=== PATIENT | female | born 1970 | race Caucasian/White ===

== ENCOUNTER → 2016-04-18 | Outpatient (REF) | payer OTHER ==
[2016-04-18 11:49] LABS: MEAN CORPUSCULAR HEMOGLOBIN 25.7 pg (27.0-33.0); MEAN CORPUSCULAR HGB CONC 31.9 g/dl (32.0-36.5); MEAN CORPUSCULAR VOLUME 80.4 fl (80.0-96.0); RED CELL DISTRIBUTION WIDTH 15.2 % (11.5-14.5); WHITE BLOOD COUNT 7.7 K/mm3 (4.0-10.0)
[2016-04-18 12:11] LABS: PERCENT SATURATION 10.5 % (13.2-37.4)
== END ==
LOC: M SFHCCLAY 09:19
PROVIDERS: ATTEND Nurse Practitioner Family
DX: D64.9 Anemia, unspecified (principal); E78.4 Other hyperlipidemia; K21.9 Gastro-esophageal reflux disease without esophagitis; E55.9 Vitamin D deficiency, unspecified

== ENCOUNTER → 2016-07-26 | Outpatient (CLI) | payer OTHER ==
--- NOTE | 2016-07-26 14:55 | REPMRS ---
Patient History The patient states she had a clinical breast exam in 07/2016. Family history of ovarian cancer in mother at age 67 and breast cancer in maternal grandmother under age 50. Digital Woman Screen Mammo: July 26, 2016 - Exam #: [id number] Bilateral CC and MLO view(s) were taken. Technologist: Ania Honeycutt, Technologist Prior study comparison: July 16, 2015, digital woman screen mammo performed at [facility] [place]. April 24, 2014, digital woman screen mammo performed at [facility] to [place]. FINDINGS: There are scattered fibroglandular densities. There has been no change in the appearance of the mammogram from the prior studies. There is a mild amount of residual fibroglandular tissue which is fairly symmetric. There is no interval development of dominant mass, architectural distortion, or clustered microcalcification suggestive of malignancy. ASSESSMENT: BI-RADS/ACR category 1 mammogram. Negative. Recommendation Routine screening mammogram in 1 year (for women over age 40). This mammogram was interpreted with the aid of an FDA-approved computer-aided dectection system. Electronically Signed By: Grant Bueno MD 07/26/16 [id number]
== END ==
LOC: M WHC 13:08
PROVIDERS: ATTEND Nurse Practitioner Family
DX: Z12.31 Encounter for screening mammogram for malignant neoplasm of breast (principal); Z80.3 Family history of malignant neoplasm of breast

== ENCOUNTER → 2016-10-31 | Outpatient (REF) | payer OTHER ==
[2016-10-31 12:44] LABS: MEAN CORPUSCULAR HEMOGLOBIN 26.4 pg (27.0-33.0); MEAN CORPUSCULAR HGB CONC 32.1 g/dl (32.0-36.5); MEAN CORPUSCULAR VOLUME 82.3 fl (80.0-96.0); RED CELL DISTRIBUTION WIDTH 14.8 % (11.5-14.5); WHITE BLOOD COUNT 7.8 K/mm3 (4.0-10.0)
[2016-10-31 13:16] LABS: ALBUMIN 3.6 GM/DL (3.2-5.2); ALBUMIN/GLOBULIN RATIO 0.97 (1.00-1.93); ALKALINE PHOSPHATASE 94 U/L (45-117); ALT/SGPT 19 U/L (12-78); ANION GAP 8 MEQ/L (8-16); AST/SGOT 13 U/L (15-37); BILIRUBIN,TOTAL 0.4 MG/DL (0.2-1.0); BLOOD UREA NITROGEN 16 MG/DL (7-18); CALCIUM LEVEL 8.8 MG/DL (8.5-10.1); CARBON DIOXIDE LEVEL 27 MEQ/L (21-32); CHLORIDE LEVEL 107 MEQ/L (98-107); CHOLESTEROL LEVEL 230 MG/DL (<200); CREATININE FOR GFR 0.61 MG/DL (0.55-1.02); GLOMERULAR FILTRATION RATE > 60.0 (>58); GLUCOSE, FASTING 96 MG/DL (70-105); PERCENT SATURATION 16.5 % (13.2-37.4); POTASSIUM SERUM 4.2 MEQ/L (3.5-5.1); SODIUM LEVEL 142 MEQ/L (136-145); TOTAL IRON BINDING CAPACITY 334 UG/DL (250-450); TOTAL PROTEIN 7.3 GM/DL (6.4-8.2); TRIGLYCERIDES LEVEL 195 MG/DL (<150)
== END ==
LOC: M SFHCCLAY 08:49
PROVIDERS: ATTEND Nurse Practitioner Family
DX: D64.9 Anemia, unspecified (principal); E78.4 Other hyperlipidemia; E55.9 Vitamin D deficiency, unspecified

== ENCOUNTER → 2017-07-24 | Outpatient (REF) | payer OTHER ==
[2017-07-24 11:30] LABS: HEMATOCRIT 33.6 % (36.0-47.0); HEMOGLOBIN 10.4 g/dl (12.0-15.5); MEAN CORPUSCULAR HEMOGLOBIN 24.9 pg (27.0-33.0); MEAN CORPUSCULAR VOLUME 80.4 fl (80.0-96.0); PLATELET COUNT, AUTOMATED 371 10^3/uL (150-450); RED BLOOD COUNT 4.18 10^6/uL (4.00-5.40); RED CELL DISTRIBUTION WIDTH 14.8 % (11.5-14.5); WHITE BLOOD COUNT 7.8 10^3/uL (4.0-10.0)
[2017-07-24 12:03] LABS: ALBUMIN 3.6 GM/DL (3.2-5.2); ALBUMIN/GLOBULIN RATIO 0.95 (1.00-1.93); ALKALINE PHOSPHATASE 126 U/L (45-117); ALT/SGPT 20 U/L (12-78); AST/SGOT 15 U/L (7-37); BILIRUBIN,DIRECT < 0.1 MG/DL (0.0-0.2); BILIRUBIN,TOTAL 0.3 MG/DL (0.2-1.0); CHOLESTEROL LEVEL 165 MG/DL (<200); CHOLESTEROL RISK RATIO 4.024 (<5); HDL CHOLESTEROL 41 MG/DL (>40); LDL CHOLESTEROL 97.2 MG/DL (<100); NON-HDL-C 124 MG/DL; TOTAL PROTEIN 7.4 GM/DL (6.4-8.2); TRIGLYCERIDES LEVEL 134 MG/DL (<150)
== END ==
LOC: M SFHCCLAY 09:11
DX: D64.9 Anemia, unspecified (principal); E78.4 Other hyperlipidemia
CPT/HCPCS: 80076

== ENCOUNTER → 2018-01-15 | Outpatient (CLI) | payer OTHER | LOC: M WHC 11:31 | DX: Z80.41 Family history of malignant neoplasm of ovary (principal); Z01.411 Encounter for gynecological examination (general) (routine) with abnormal findings (principal) | CPT/HCPCS: 76830 ==

== ENCOUNTER → 2018-04-06 | Outpatient (CLI) | payer OTHER ==
--- NOTE | 2018-04-06 18:16 | REP ---
Pelvic sonography: History: Endometrial polyp. Comparison pelvic sonography January 15, 2018 showed a possible endometrial polyp. Findings: Uterine dimensions are somewhat enlarged at 11.6 x 5.5 x 7.2 cm. Endometrial echo is 0.8 cm thick. Uterus is anteverted. Nabothian cysts are seen in the cervix. A 1.2 x 0.7 x 0.6 cm hypoechoic area seen on transvaginal imaging anterior to the endometrium suggesting a submucosal fibroid. No endometrial polyp is visible today. The right ovary could not be seen. No right adnexal mass or cyst is seen. No free fluid is noted. The left ovary measures 3.9 x 2.3 x 3.2 cm. It contains a 2.8 x 1.4 x 1.8 cm follicle cyst. Impression: Uterine enlargement. Probable 1.2 cm submucosal fibroid at the fundus. No definite endometrial polyp seen today.
== END ==
LOC: M WHC 11:01
PROVIDERS: ATTEND Nurse Practitioner Family
DX: D25.9 Leiomyoma of uterus, unspecified (principal); N84.0 Polyp of corpus uteri

== ENCOUNTER → 2019-01-14 | Outpatient (CLI) | payer OTHER ==
--- NOTE | 2019-01-15 08:31 | REPMRS ---
Patient History The patient states she had a clinical breast exam in 01/2019. Family history of ovarian cancer at age 67 in mother, breast cancer at age 50 or over in paternal aunt. No Hormone Replacement Therapy Digital Woman Screen Mammo: January 14, 2019 - Exam #: [id number] Bilateral CC and MLO view(s) were taken. Technologist: Ania Honeycutt, Technologist Prior study comparison: December 01, 2017, bilateral digital woman screen mammo performed at [facility]. July 26, 2016, digital woman screen mammo performed at [facility]. July 16, 2015, digital woman screen mammo performed at [facility]. FINDINGS: The breast tissue is almost entirely fat. There has been no change in the appearance of the mammogram from the prior studies. There is no interval development of dominant mass, architectural distortion, or grouped microcalcification typical of malignancy. 3-D tomosynthesis shows no additional findings. Assessment: BI-RADS/ACR category 1 mammogram. Negative Mammogram. Recommendation Routine screening mammogram of both breasts in 1 year (for women over age 40). This patient's Lifetime Breast Cancer RIsk is estimated at 18.3 %. This mammogram was interpreted with the aid of an FDA-approved computer-aided dectection system. Electronically Signed By: Glenn Breen MD 01/15/19 0855
== END ==
LOC: M WHC 13:02
PROVIDERS: ATTEND Nurse Practitioner Family
DX: Z12.31 Encounter for screening mammogram for malignant neoplasm of breast (principal); Z80.41 Family history of malignant neoplasm of ovary

== ENCOUNTER → 2019-09-24 | Outpatient (REF) | payer OTHER ==
[2019-09-24 12:21] LABS: HEMATOCRIT 30.1 % (36.0-47.0); HEMOGLOBIN 8.6 g/dl (12.0-15.5); MEAN CORPUSCULAR HEMOGLOBIN 22.2 pg (27.0-33.0); MEAN CORPUSCULAR HGB CONC 28.6 g/dl (32.0-36.5); MEAN CORPUSCULAR VOLUME 77.6 fl (80.0-96.0); PLATELET COUNT, AUTOMATED 355 10^3/uL (150-450); RED BLOOD COUNT 3.88 10^6/uL (4.00-5.40); WHITE BLOOD COUNT 8.8 10^3/uL (4.0-10.0)
[2019-09-24 12:45] LABS: ALBUMIN 3.3 GM/DL (3.2-5.2); ALT/SGPT 26 U/L (12-78); BILIRUBIN,TOTAL 0.5 MG/DL (0.2-1.0); BLOOD UREA NITROGEN 14 MG/DL (7-18); CALCIUM LEVEL 8.8 MG/DL (8.5-10.1); CARBON DIOXIDE LEVEL 27 MEQ/L (21-32); CHLORIDE LEVEL 106 MEQ/L (98-107); CHOLESTEROL LEVEL 180 MG/DL (<200); CHOLESTEROL RISK RATIO 4.285 (<5); CREATININE FOR GFR 0.61 MG/DL (0.55-1.30); GLOMERULAR FILTRATION RATE > 60.0 (>58); GLUCOSE, FASTING 123 MG/DL (70-100); HDL CHOLESTEROL 42 MG/DL (>40); LDL CHOLESTEROL 104 MG/DL (<100); NON-HDL-C 138 MG/DL; SODIUM LEVEL 139 MEQ/L (136-145); TOTAL PROTEIN 6.9 GM/DL (6.4-8.2); TRIGLYCERIDES LEVEL 172 MG/DL (<150)
== END ==
LOC: M SFHCCLAY 08:46
PROVIDERS: ATTEND Nurse Practitioner Family
DX: K21.9 Gastro-esophageal reflux disease without esophagitis (principal); E78.5 Hyperlipidemia, unspecified; E55.9 Vitamin D deficiency, unspecified

== ENCOUNTER → 2019-10-07 | Outpatient (CLI) | payer OTHER | LOC: M RAD 12:11 | PROVIDERS: ATTEND Nurse Practitioner Family | DX: Z91.89 Other specified personal risk factors, not elsewhere classified (principal) ==

== ENCOUNTER → 2019-11-12 | Outpatient (REF) | payer OTHER ==
[~2019-11-12] MED LIST: ATOR40TA75 PO; LISI10TA4 PO; MAGN64TASA PO; MEDR10TA PO; METF500T13 PO; MULTCAP PO; OMEP40CA97 PO; OXYC1TAB23 PO; SERT25TA21 PO; VITA50005 PO
[2019-12-16 10:39] LABS: HEMATOCRIT 30.6 % (36.0-47.0); HEMOGLOBIN 8.6 g/dl (12.0-15.5); MEAN CORPUSCULAR HEMOGLOBIN 21.1 pg (27.0-33.0); MEAN CORPUSCULAR HGB CONC 28.1 g/dl (32.0-36.5); PLATELET COUNT, AUTOMATED 435 10^3/uL (150-450); RED BLOOD COUNT 4.08 10^6/uL (4.00-5.40); WHITE BLOOD COUNT 10.6 10^3/uL (4.0-10.0)
[2019-12-29 07:18] LABS: ALBUMIN 3.6 GM/DL (3.2-5.2); ALT/SGPT 22 U/L (12-78); BILIRUBIN,TOTAL 0.4 MG/DL (0.2-1.0); BLOOD UREA NITROGEN 12 MG/DL (7-18); CARBON DIOXIDE LEVEL 24 MEQ/L (21-32); CHLORIDE LEVEL 109 MEQ/L (98-107); CREATININE FOR GFR 0.74 MG/DL (0.55-1.30); GLOMERULAR FILTRATION RATE > 60.0 (>58); GLUCOSE, FASTING 202 MG/DL (70-100); POTASSIUM SERUM 3.8 MEQ/L (3.5-5.1); SODIUM LEVEL 141 MEQ/L (136-145); TOTAL PROTEIN 7.3 GM/DL (6.4-8.2)
== END ==
LOC: M SFHCCLAY 12:26
PROVIDERS: ATTEND Family Medicine
DX: E78.00 Pure hypercholesterolemia, unspecified (principal); N93.9 Abnormal uterine and vaginal bleeding, unspecified

== ENCOUNTER → 2019-11-22 | Outpatient (CLI) | payer OTHER | LOC: M LABSMTC 11:11 | PROVIDERS: ATTEND Anesthesiology | DX: Z01.812 Encounter for preprocedural laboratory examination (principal); Z11.59 Encounter for screening for other viral diseases ==

== ENCOUNTER 2019-11-27 07:09 | Day surgery (SDC) | payer OTHER ==
[~2019-11-27] VITALS: Ht 167.6 cm; Wt 146.9 kg
[2019-11-27] VITALS (8 sets, daily range): BP systolic 128–159; BP diastolic 60–87
[~2019-11-27 07:09] MED LIST changes: -LISI10TA4 PO; -METF500T13 PO; -OXYC1TAB23 PO
[2019-11-27] MEDS ORDERED: BUPIVACAINE HCL 0.25% 30ML VIAL As Ordered ONE (08:03)
[2019-11-27] MEDS ORDERED: ceFAZolin SOD 2 GM in IV 1 EA IV ONE (08:15)
[2019-11-27] MEDS ORDERED: ceFAZolin SOD 1 GM in D5W MINI-BAG PLUS 50 ML IV ONE (08:15)
[2019-11-27] MEDS ORDERED: BUPIVACAINE HCL 0.25% 10ML VIAL As Ordered ONE (08:29)
[2019-11-27] MEDS ORDERED: LR 1,000 ML IV ONE (08:30)
[2019-11-27 08:33] LABS: WHITE BLOOD COUNT 14.3 10^3/uL (4.0-10.0)
[2019-11-27 08:34] LABS: HEMATOCRIT 30.2 % (36.0-47.0); HEMOGLOBIN 8.7 g/dl (12.0-15.5); MEAN CORPUSCULAR HEMOGLOBIN 21.2 pg (27.0-33.0); MEAN CORPUSCULAR HGB CONC 28.8 g/dl (32.0-36.5); MEAN CORPUSCULAR VOLUME 73.7 fl (80.0-96.0); PLATELET COUNT, AUTOMATED 386 10^3/uL (150-450)
[2019-11-27] MEDS ORDERED: OXYC1TAB23 PO (08:39)
[2019-11-27] MEDS ORDERED: MIDAZOLAM INJ 2MG/2ML VIAL (J2250 PER 1MG) As Ordered ONE (08:57)
[2019-11-27] MEDS ORDERED: propofoL 200 MG/20 ML VIAL As Ordered ONE (08:57)
[2019-11-27] MEDS ORDERED: HYDROmorphone HCL 2 MG/ML 1ML VIAL (J1170) As Ordered ONE (08:57)
[2019-11-27] MEDS ORDERED: dexameTHASONE 4 MG/ML 1ML VIAL (J1100 PER 1MG) As Ordered ONE (08:57)
[2019-11-27] MEDS ORDERED: LIDOCAINE 2% 100MG/5ML SDV (FOR ANES.) As Ordered ONE (08:57)
[2019-11-27] MEDS ORDERED: KETOROLAC 60MG 2ML VIAL As Ordered ONE (08:57)
[2019-11-27] MEDS ORDERED: ONDANSETRON 4MG/2ML VIAL As Ordered ONE (08:57)
[2019-11-27] MEDS ORDERED: ROCURONIUM BROMIDE 50 MG/5 ML VIAL As Ordered ONE ×2 (08:57→09:09)
[2019-11-27] MEDS ORDERED: fentaNYL 100 MCG/2 ML INJECTION (J3010) As Ordered ONE (08:57)
[2019-11-27] MEDS ORDERED: GLYCOPYRROLATE INJ 0.2 MG/ML 2 ML VIAL As Ordered ONE (09:26)
[2019-11-27] MEDS ORDERED: ePHEDrine SULFATE 25 MG/5 ML(5MG/ML) SYRINGE As Ordered ONE (09:28)
[2019-11-27] MEDS ORDERED: SUGAMMADEX SODIUM 500 MG/5 ML VIAL (BRIDION) As Ordered ONE (09:34)
[2019-11-27] MEDS ORDERED: HYDROMORPHONE HCL 0.5 MG/ 0.5 ML SYRINGE (J1170 PER 1) IV PRN (11:30)
[2019-11-27] MEDS ORDERED: fentaNYL 100 MCG/2 ML INJECTION (J3010) IV PRN (11:30)
[2019-11-27] MEDS ORDERED: oxyCODONE 5MG TAB PO PRN (11:30)
[2019-11-27] MEDS ORDERED: LR 1,000 ML IV SCH (11:30)
[2019-11-27] MEDS ORDERED: ONDANSETRON 4MG/2ML VIAL IV PRN ×2 (11:30→12:15)
[2019-11-27] MEDS ORDERED: KETOROLAC 30 MG/ML 1ML VIAL IV PRN (12:15)
[2019-11-27] MEDS ORDERED: MORPHINE 4 MG/ML 1ML VIAL/SYRINGE (J2270) IV PRN (12:15)
[2019-11-27] MEDS ORDERED: PERCOCET 5MG/325MG TAB PO PRN ×2 (12:15)
[2019-11-27] MEDS: LR 1,000 ML IV SCH ×2 (20:15→21:00)
[2019-11-27] MEDS ORDERED: OMEPRAZOLE 20 MG CAP PO SCH (21:00)
[2019-11-27] MEDS: DOCUSATE SODIUM 100 MG CAP PO SCH (21:21)
[2019-11-28] VITALS: BP 125/68
[2019-11-28 04:00] VITALS: BP 115/56
[2019-11-28] MEDS: LR 1,000 ML IV SCH (04:15)
[2019-11-28] MEDS: DOCUSATE SODIUM 100 MG CAP PO SCH (07:51)
[2019-11-28 08:00] VITALS: BP 117/61
[2019-11-28] MEDS ORDERED: IBUPROFEN 800 MG TAB PO PRN (08:15)
[2019-11-28 09:20] LABS: HEMATOCRIT 28.4 % (36.0-47.0); HEMOGLOBIN 8.3 g/dl (12.0-15.5); MEAN CORPUSCULAR HEMOGLOBIN 21.4 pg (27.0-33.0); MEAN CORPUSCULAR HGB CONC 29.2 g/dl (32.0-36.5); MEAN CORPUSCULAR VOLUME 73.2 fl (80.0-96.0); PLATELET COUNT, AUTOMATED 417 10^3/uL (150-450); RED BLOOD COUNT 3.88 10^6/uL (4.00-5.40); WHITE BLOOD COUNT 16.6 10^3/uL (4.0-10.0)
--- NOTE | 2020-01-09 12:48 | RO ---
DATE OF OPERATION: 11/27/2019. PREOPERATIVE DIAGNOSIS: Menorrhagia. POSTOPERATIVE DIAGNOSIS: Menorrhagia. PROCEDURE: Robotic-assisted laparoscopic hysterectomy, bilateral salpingo- oophorectomy, cystoscopy. SURGEON: Micah Gillespie MD ANESTHESIA: General endotracheal. ESTIMATED BLOOD LOSS: 100 cc. URINE OUTPUT: 100 cc. FINDINGS: Enlarged uterus with fibroids, 5 cm simple appearing cyst of the left ovary, normal appearing right ovary, Fallopian tubes, umbilical hernia with omentum present in the hernia. Otherwise normal upper abdomen. DESCRIPTION OF PROCEDURE: The patient was taken to the operating room where general endotracheal anesthesia was induced. She was prepped and draped in sterile fashion in the dorsolithotomy position. A Andrea catheter was placed. V- Care uterine manipulator was placed. Paraumbilical incision was made with a scalpel. Veress needle was placed through the incision while tenting up the skin of the abdomen. Intraabdominal location of the Veress needle was assessed with use a saline filled syringe. A pneumoperitoneum was created. The Veress needle was removed. The elevator trocar using farmhoppingiPort was inserted through this incision. Three 8 mm suprapubic ports were placed under direct visualization. The patient was placed in the Trendelenburg position. The Da Nader surgical robot was docked to the ports. Using the fenestrated bipolar and vessel sealer, the IP ligaments, round ligaments were coagulated incised anterior and posteriorly so the broad ligaments were . A bladder flap was created. Uterine vessels were coagulated incised. Using the monopolar Endoshears, a colpotomy was created in the upper vagina at the level of the V-Care cup. This was extended circumferentially around the upper vagina. Specimens including the uterus and cervix including both Fallopian tubes and ovaries were removed through the vagina. The vaginal cuff was closed with #1 V-Loc suture in a running fashion. Pelvis was irrigated with good hemostasis noted. Cystoscopy was performed using a 70 degree cystoscope. Bilateral ureteral jets were identified. There was no evidence of injury to the bladder. All instruments were removed. Skin was closed with 4-0 Monocryl subcuticular sutures. Sponge, instrument and needle counts were corrected. Patient was extubated and went to the Recovery Room in stable condition. [facility]
== END 2019-11-28 11:30 | disposition home or self-care (01) ==
LOC: M SDC 07:09 → M PED 12:40 → M SDC 11-28 11:30
PROVIDERS: ATTEND Specialist
DX: N92.0 Excessive and frequent menstruation with regular cycle (principal); D25.9 Leiomyoma of uterus, unspecified; N80.0 Endometriosis of uterus; N83.209 Unspecified ovarian cyst, unspecified side; Z88.8 Allergy status to other drugs, medicaments and biological substances; Z79.899 Other long term (current) drug therapy; E78.5 Hyperlipidemia, unspecified
CPT/HCPCS: 58573; 81025; 85027; 86850; 86900; 86901; 88307; J0690; J1100; J1170; J1885; J2250; J2405; J3010

== ENCOUNTER → 2019-12-24 | Outpatient (REF) | payer OTHER ==
[~2019-12-24] MED LIST changes: +LISI10TA4 PO; +METF500T13 PO; +OXYC1TAB23 PO
[2019-12-24 12:34] LABS: HEMATOCRIT 29.2 % (36.0-47.0); HEMOGLOBIN 8.2 g/dl (12.0-15.5); MEAN CORPUSCULAR HEMOGLOBIN 21.1 pg (27.0-33.0); MEAN CORPUSCULAR HGB CONC 28.1 g/dl (32.0-36.5); MEAN CORPUSCULAR VOLUME 75.1 fl (80.0-96.0); PLATELET COUNT, AUTOMATED 331 10^3/uL (150-450); RED BLOOD COUNT 3.89 10^6/uL (4.00-5.40); WHITE BLOOD COUNT 7.2 10^3/uL (4.0-10.0)
[2019-12-24 12:55] LABS: CHOLESTEROL RISK RATIO 4.088 (<5); FOLATE 11.6 NG/ML; PERCENT SATURATION 10.5 % (13.2-45.0); TOTAL 25(OH) VITAMIN D 52.3 NG/ML (30.0-100.0)
[2019-12-24 14:34] LABS: HEMOGLOBIN A1c 7.6 %
== END ==
LOC: M SFHCCLAY 11:06
PROVIDERS: ATTEND Nurse Practitioner Family
DX: E78.5 Hyperlipidemia, unspecified (principal); E55.9 Vitamin D deficiency, unspecified

== ENCOUNTER 2020-01-10 08:29 | Outpatient (CLI) | payer OTHER ==
[2020-01-10] VITALS (8 sets, daily range): BP systolic 113–138; BP diastolic 56–86
[~2020-01-10] VITALS: Ht 167.6 cm; Wt 149.5 kg
[~2020-01-10 08:29] MED LIST changes: -LISI10TA4 PO; -METF500T13 PO
[2020-01-10] MEDS: IRON SUCROSE 25 MG in NS 25 ML IV ONE (08:55)
[2020-01-10] MEDS ORDERED: LISI10TA4 PO (09:10)
[2020-01-10] MEDS ORDERED: METF500T13 PO (09:10)
[2020-01-10] MEDS: IRON SUCROSE 475 MG in NS 250 ML IV ONE (10:10)
== END 2020-01-10 15:00 | disposition home or self-care (01) ==
LOC: M INFU 08:29
PROVIDERS: ATTEND Nurse Practitioner Family
DX: D64.9 Anemia, unspecified (principal)
CPT/HCPCS: 96365; 96366; J1756

== ENCOUNTER → 2020-01-23 | Outpatient (CLI) | payer OTHER ==
[~2020-01-23] MED LIST changes: +LISI10TA4 PO; +METF500T13 PO
--- NOTE | 2020-01-23 13:26 | REPMRS ---
Patient History The patient states she had a clinical breast exam in January 2020. Family history of ovarian cancer at age 67 in mother, breast cancer at age 50 or over in paternal aunt. No Hormone Replacement Therapy 3D TOMOSYNTHESIS WAS PERFORMED. The Angela Tee lifetime risk for breast cancer is 18.1%. Volpara breast density b. Digital Woman Screen Mammo: January 23, 2020 - Exam #: [id number] Bilateral CC and MLO view(s) were taken. Technologist: RT Madelyn Prior study comparison: January 14, 2019, bilateral digital woman screen mammo performed at [facility]. December 01, 2017, bilateral digital woman screen mammo performed at [facility]. FINDINGS: There are scattered fibroglandular densities. There has been no change in the appearance of the mammogram from the prior studies. There is a mild amount of residual fibroglandular tissue which is fairly symmetric. There is no interval development of dominant mass, architectural distortion, or clustered microcalcification suggestive of malignancy. Assessment: BI-RADS/ACR category 1 mammogram. Negative Mammogram. Recommendation Routine screening mammogram in 1 year (for women over age 40). This mammogram was interpreted with the aid of an FDA-approved computer-aided dectection system. Electronically Signed By: Grant Bueno MD 01/23/20 [id number]
== END ==
LOC: M WHC 11:27
PROVIDERS: ATTEND Nurse Practitioner Family
DX: Z12.31 Encounter for screening mammogram for malignant neoplasm of breast (principal)

== ENCOUNTER → 2020-02-08 | Outpatient (CLI) | payer OTHER | LOC: M LABSMTC 09:38 | PROVIDERS: ATTEND Anesthesiology | DX: Z01.812 Encounter for preprocedural laboratory examination (principal); Z20.828 Contact with and (suspected) exposure to other viral communicable diseases | CPT/HCPCS: C9803; U0003 ==

== ENCOUNTER → 2020-02-11 | Outpatient (REF) | payer OTHER ==
[2020-02-11 11:43] LABS: HEMATOCRIT 33.1 % (36.0-47.0); HEMOGLOBIN 9.4 g/dl (12.0-15.5); MEAN CORPUSCULAR HEMOGLOBIN 22.2 pg (27.0-33.0); MEAN CORPUSCULAR HGB CONC 28.4 g/dl (32.0-36.5); MEAN CORPUSCULAR VOLUME 78.1 fl (80.0-96.0); PLATELET COUNT, AUTOMATED 365 10^3/uL (150-450); RED BLOOD COUNT 4.24 10^6/uL (4.00-5.40); WHITE BLOOD COUNT 7.6 10^3/uL (4.0-10.0)
[2020-02-11 12:12] LABS: PERCENT SATURATION 11.7 % (13.2-45.0)
== END ==
LOC: M SFHCCLAY 07:08
PROVIDERS: ATTEND Nurse Practitioner Family
DX: D64.9 Anemia, unspecified (principal)

== ENCOUNTER 2020-02-13 08:41 | Day surgery (SDC) | payer OTHER ==
[~2020-02-13] VITALS: Ht 167.6 cm; Wt 137.0 kg
[~2020-02-13 08:41] MED LIST changes: +NS 1,000 ML IV ONE
[2020-02-13] MEDS ORDERED: fentaNYL 100 MCG/2 ML INJECTION (J3010) As Ordered ONE (08:47)
[2020-02-13] MEDS ORDERED: LIDOCAINE 2% 100MG/5ML SDV (FOR ANES.) As Ordered ONE (08:47)
[2020-02-13] MEDS ORDERED: propofoL 500 MG/50 ML VIAL As Ordered ONE (08:48)
--- NOTE | 2020-02-13 09:50 | ROOR ---
Patient Name: Kelly Champagne Procedure Date: 02/13/2020 9:25 AM Date of : 1970 Age: 49 Room: [facility] Gender: Female Note Status: Finalized Procedure: Upper GI endoscopy Indications: Iron deficiency anemia Providers: Benji Faye Jr, MD Referring MD: Sharlene Carvalho NP Requesting Provider: Medicines: Propofol per Anesthesia Complications: No immediate complications. Procedure: Pre-Anesthesia Assessment: - Prior to the procedure, a History and Physical was performed, and patient medications and allergies were reviewed. The patient is competent. The risks and benefits of the procedure and the sedation options and risks were discussed with the patient. All questions were answered and informed consent was obtained. Patient identification and proposed procedure were verified by the physician and the nurse in the pre-procedure area and in the procedure room. Mental Status Examination: alert and oriented. Airway Examination: normal oropharyngeal airway and neck mobility. Respiratory Examination: clear to auscultation. CV Examination: normal. ASA Grade Assessment: III - A patient with severe systemic disease. After reviewing the risks and benefits, the patient was deemed in satisfactory condition to undergo the procedure. The anesthesia plan was to use moderate sedation / analgesia (conscious sedation). Immediately prior to administration of medications, the patient was re-assessed for adequacy to receive sedatives. The heart rate, respiratory rate, oxygen saturations, blood pressure, adequacy of pulmonary ventilation, and response to care were monitored throughout the procedure. The physical status of the patient was re-assessed after the procedure. The Endoscope was introduced through the mouth, and advanced to the second part of duodenum. The upper GI endoscopy was accomplished without difficulty. The patient tolerated the procedure well. Findings: The upper third of the esophagus, middle third of the esophagus and lower third of the esophagus were normal. The cardia, gastric fundus, gastric antrum, prepyloric region of the stomach and pylorus were normal. A single small pedunculated and sessile polyp with no bleeding and stigmata of recent bleeding was found in the gastric body. The polyp was removed with a hot snare. Resection and retrieval were complete. The duodenal bulb, first portion of the duodenum and second portion of the duodenum were normal. A medium-sized hiatal hernia was present. Impression: - Normal upper third of esophagus, middle third of esophagus and lower third of esophagus. - Normal cardia, gastric fundus, antrum, prepyloric region of the stomach and pylorus. - A single gastric polyp. Resected and retrieved. - Normal duodenal bulb, first portion of the duodenum and second portion of the duodenum. - Medium-sized hiatal hernia. Recommendation: - Discharge patient to home (ambulatory). - Return to my office in 2 weeks. Benji Faye MD Benji Faye Jr, MD 02/13/2020 9:49:46 AM Electronically signed by Benji Faye Jr, MD Number of Addenda: 0 Note Initiated On: 02/13/2020 9:25 AM Estimated Blood Loss: Estimated blood loss: none.
[2020-02-13] MEDS ORDERED: propofoL 200 MG/20 ML VIAL As Ordered ONE (10:02)
--- NOTE | 2020-02-13 10:05 | ROOR ---
Patient Name: Kelly Champagne Procedure Date: 02/13/2020 9:26 AM Date of : 1970 Age: 49 Room: [facility] Gender: Female Note Status: Finalized Procedure: Colonoscopy Indications: Iron deficiency anemia Providers: Benji Faye Jr, MD Referring MD: Sharlene Carvalho NP Requesting Provider: Medicines: Propofol per Anesthesia Complications: No immediate complications. Procedure: Pre-Anesthesia Assessment: - Prior to the procedure, a History and Physical was performed, and patient medications and allergies were reviewed. The patient is competent. The risks and benefits of the procedure and the sedation options and risks were discussed with the patient. All questions were answered and informed consent was obtained. Patient identification and proposed procedure were verified by the physician and the nurse in the pre-procedure area and in the procedure room. Mental Status Examination: alert and oriented. Airway Examination: normal oropharyngeal airway and neck mobility. Respiratory Examination: clear to auscultation. CV Examination: normal. ASA Grade Assessment: II - A patient with mild systemic disease. After reviewing the risks and benefits, the patient was deemed in satisfactory condition to undergo the procedure. The anesthesia plan was to use moderate sedation / analgesia (conscious sedation). Immediately prior to administration of medications, the patient was re-assessed for adequacy to receive sedatives. The heart rate, respiratory rate, oxygen saturations, blood pressure, adequacy of pulmonary ventilation, and response to care were monitored throughout the procedure. The physical status of the patient was re-assessed after the procedure. The Colonoscope was introduced through the anus and advanced to the cecum, identified by appendiceal orifice and ileocecal valve. The colonoscopy was performed without difficulty. The patient tolerated the procedure well. The quality of the bowel preparation was adequate. Findings: The rectum, recto-sigmoid colon, descending colon, ascending colon, cecum, appendiceal orifice and ileocecal valve appeared normal. A diminutive polyp was found in the transverse colon. The polyp was sessile. The polyp was removed with a hot snare. Resection and retrieval were complete. Multiple small-mouthed diverticula were found in the sigmoid colon. Impression: - The rectum, recto-sigmoid colon, descending colon, ascending colon, cecum, appendiceal orifice and ileocecal valve are normal. - One diminutive polyp in the transverse colon, removed with a hot snare. Resected and retrieved. - Diverticulosis in the sigmoid colon. Recommendation: - Discharge patient to home (ambulatory). - Repeat colonoscopy in 5-10 years for surveillance based on pathology results. Benji Faye MD Benji Faye Jr, MD 02/13/2020 10:05:13 AM Electronically signed by Benji Faye Jr, MD Number of Addenda: 0 Note Initiated On: 02/13/2020 9:26 AM Estimated Blood Loss: Estimated blood loss: none.
[2020-02-13 10:28] VITALS: BP 136/80
== END 2020-02-13 10:29 | disposition home or self-care (01) ==
LOC: M OPP 08:41
PROVIDERS: ATTEND Surgery
DX: K63.5 Polyp of colon (principal); K57.30 Diverticulosis of large intestine without perforation or abscess without bleeding; D50.9 Iron deficiency anemia, unspecified; K31.7 Polyp of stomach and duodenum; K44.9 Diaphragmatic hernia without obstruction or gangrene; E11.9 Type 2 diabetes mellitus without complications; I10 Essential (primary) hypertension; Z79.84 Long term (current) use of oral hypoglycemic drugs; Z79.899 Other long term (current) drug therapy; Z88.5 Allergy status to narcotic agent; Z88.8 Allergy status to other drugs, medicaments and biological substances; Z91.018 Allergy to other foods
CPT/HCPCS: 43251; 45385; 88305; J3010

== ENCOUNTER → 2020-04-02 | Outpatient (REF) | payer OTHER ==
[~2020-04-02] MED LIST changes: -NS 1,000 ML IV ONE
[2020-04-02 12:06] LABS: HEMATOCRIT 36.5 % (36.0-47.0); HEMOGLOBIN 10.8 g/dl (12.0-15.5); MEAN CORPUSCULAR HEMOGLOBIN 23.5 pg (27.0-33.0); MEAN CORPUSCULAR HGB CONC 29.6 g/dl (32.0-36.5); MEAN CORPUSCULAR VOLUME 79.5 fl (80.0-96.0); PLATELET COUNT, AUTOMATED 355 10^3/uL (150-450); RED BLOOD COUNT 4.59 10^6/uL (4.00-5.40); WHITE BLOOD COUNT 8.3 10^3/uL (4.0-10.0)
[2020-04-02 12:45] LABS: CHOLESTEROL RISK RATIO 3.953 (<5); MALB URINE SIEMENS 16.3 MG/L; MAU/CREAT RATIO 8.2 MCG/MG (0.0-30.0); PERCENT SATURATION 7.9 % (13.2-45.0)
[2020-04-02 12:46] LABS: FOLATE 17.8 NG/ML (>5.4); TOTAL 25(OH) VITAMIN D 70.3 NG/ML (30.0-100.0)
[2020-04-02 14:13] LABS: HEMOGLOBIN A1c 6.1 %
== END ==
LOC: M SFHCCLAY 07:32
PROVIDERS: ATTEND Nurse Practitioner Family
DX: D64.9 Anemia, unspecified (principal); E11.69 Type 2 diabetes mellitus with other specified complication; E78.5 Hyperlipidemia, unspecified; E55.9 Vitamin D deficiency, unspecified

== ENCOUNTER → 2020-04-22 | Outpatient (REF) | payer OTHER ==
[~2020-04-22] MED LIST changes: +LISI10TA22 PO; -LISI10TA4 PO
[2020-04-22 11:55] LABS: HEMOGLOBIN 10.6 g/dl (12.0-15.5); MEAN CORPUSCULAR HEMOGLOBIN 23.7 pg (27.0-33.0); MEAN CORPUSCULAR HGB CONC 29.4 g/dl (32.0-36.5); MEAN CORPUSCULAR VOLUME 80.4 fl (80.0-96.0); PLATELET COUNT, AUTOMATED 324 10^3/uL (150-450); RED BLOOD COUNT 4.48 10^6/uL (4.00-5.40); WHITE BLOOD COUNT 8.5 10^3/uL (4.0-10.0)
== END ==
LOC: M SFHCCLAY 07:10
PROVIDERS: ATTEND Family Medicine
DX: D50.0 Iron deficiency anemia secondary to blood loss (chronic) (principal)

== ENCOUNTER → 2020-07-27 | Outpatient (REF) | payer OTHER ==
[2020-07-27 11:29] LABS: HEMATOCRIT 38.4 % (36.0-47.0); HEMOGLOBIN 11.8 g/dl (12.0-15.5); MEAN CORPUSCULAR HEMOGLOBIN 25.9 pg (27.0-33.0); MEAN CORPUSCULAR HGB CONC 30.7 g/dl (32.0-36.5); MEAN CORPUSCULAR VOLUME 84.2 fl (80.0-96.0); PLATELET COUNT, AUTOMATED 302 10^3/uL (150-450); RED BLOOD COUNT 4.56 10^6/uL (4.00-5.40); WHITE BLOOD COUNT 8.5 10^3/uL (4.0-10.0)
[2020-07-27 11:44] LABS: HEMOGLOBIN A1c 5.4 %
[2020-07-27 12:12] LABS: PERCENT SATURATION 12.9 % (13.2-45.0)
== END ==
LOC: M SFHCCLAY 07:10
PROVIDERS: ATTEND Nurse Practitioner Family
DX: D50.0 Iron deficiency anemia secondary to blood loss (chronic) (principal); E11.69 Type 2 diabetes mellitus with other specified complication

== ENCOUNTER → 2021-01-26 | Outpatient (CLI) | payer OTHER ==
[~2021-01-26] MED LIST changes: +ERGO500029 PO; +OMEP40CA4 PO; -OMEP40CA97 PO; -VITA50005 PO
--- NOTE | 2021-01-26 14:52 | REPMRS ---
Patient History The patient states she had a clinical breast exam in January 2021. Family history of ovarian cancer at age 67 in mother, breast cancer at age 50 or over in paternal aunt. No Hormone Replacement Therapy Patient states no breast complaints today. Patient has signed MRS History Sheet. Digital Woman Screen Mammo: January 26, 2021 - Exam #: [id number] Bilateral CC and MLO view(s) were taken. Technologist: Vianca Eng Technologist Prior study comparison: January 23, 2020, bilateral digital woman screen mammo performed at [facility]. January 14, 2019, bilateral digital woman screen mammo performed at [facility]. FINDINGS: There are scattered fibroglandular densities. Screening. Digital screening (2D) mammography was performed bilaterally in the CC and MLO projections. Additionally, breast tomosynthesis (3D mammography) was performed bilaterally in the CC and MLO projections. Todays exam was compared to the prior exam/exams. By history, the patient has no complaints of a palpable breast abnormality or other significant breast complaints. The Volpara volumetric breast density category is B, there are scattered areas of fibroglandular densities. The breasts are unchanged in size and shape. There are no mary beth-soft tissue densities or spiculated masses. There is no internal architectural distortion. There are no suspicious mary beth-calcific clusters. Skin thickening or nipple retraction is not present. IMPRESSION: BI-RADS Category 2- Benign Findings. There is no evidence of malignant alteration of the breasts. Followup examination recommended in one year. The lifetime Tyrer-Cuzick score is 17.4% This mammogram was read with the assistance of [employer],an FDA approved computer aided detection system for mammography. Negative x-ray reports should not delay surgical consultation if a dominant or clinically suspicious mass is present. Not all breast cancers can be identified by mammography. Therefore, we recommend that you continue to perform regular breast self-examination and physical examination and then promptly contact your physician of any concerns or changes. Adenosis and dense breasts may obscure an underlying neoplasm. No significant changes when compared with prior studies. Assessment: BI-RADS/ACR category 2 mammogram. Benign Findings. Recommendation Routine screening mammogram of both breasts in 1 year. Electronically Signed By: Mio Jack MD 01/26/21 [id number]
== END ==
LOC: M WHC 09:51
PROVIDERS: ATTEND Nurse Practitioner Women's Health
DX: Z12.31 Encounter for screening mammogram for malignant neoplasm of breast (principal); Z80.41 Family history of malignant neoplasm of ovary

== ENCOUNTER → 2021-12-24 | Outpatient (CLI) | payer OTHER ==
[2021-12-24 10:13] LABS: BLOOD UREA NITROGEN 18 MG/DL (7-18); CALCIUM LEVEL 9.2 MG/DL (8.5-10.1); CARBON DIOXIDE LEVEL 29 MEQ/L (21-32); CHLORIDE LEVEL 108 MEQ/L (98-107); CREATININE FOR GFR 0.53 MG/DL (0.55-1.30); GLOMERULAR FILTRATION RATE > 60.0 (>51); GLUCOSE, FASTING 97 MG/DL (70-100); POTASSIUM SERUM 4.2 MEQ/L (3.5-5.1); SODIUM LEVEL 142 MEQ/L (136-145)
== END ==
LOC: M EKG 08:22
PROVIDERS: ATTEND Orthopaedic Surgery
DX: M75.121 Complete rotator cuff tear or rupture of right shoulder, not specified as traumatic (principal); M75.21 Bicipital tendinitis, right shoulder; M19.011 Primary osteoarthritis, right shoulder

== ENCOUNTER → 2022-03-31 | Outpatient (CLI) | payer OTHER | LOC: M WHC 09:30 | PROVIDERS: ATTEND Nurse Practitioner Family | DX: Z12.31 Encounter for screening mammogram for malignant neoplasm of breast (principal) ==

== ENCOUNTER → 2023-06-02 | Outpatient (CLI) | payer OTHER ==
[~2023-06-02] MED LIST changes: -MEDR10TA PO; +MEDR10TA9 PO
== END ==
LOC: M WHC 08:48
PROVIDERS: ATTEND Nurse Practitioner Family
DX: Z12.31 Encounter for screening mammogram for malignant neoplasm of breast (principal)

== ENCOUNTER → 2023-06-02 | Outpatient (REF) | payer OTHER | LOC: M SFHCWAGY 15:36 | PROVIDERS: ATTEND Nurse Practitioner Family | DX: Z12.4 Encounter for screening for malignant neoplasm of cervix (principal); N95.2 Postmenopausal atrophic vaginitis | CPT/HCPCS: 87624; G0123 ==